=== PATIENT | female | born 1995 | race Caucasian/White ===

== ENCOUNTER → 2024-02-29 14:00 | Outpatient (CLI) | payer OTHER, SELFPAY ==
--- NOTE | 2024-02-29 14:01 | DI.US.S_ITS ---
PROCEDURE: US OB >= 14 WEEKS FETUS INDICATIONS: anatomy OUTSIDE/PRIOR DATING DATA: Last menstrual period (LMP): 10/02/2023. LMP-based estimated date of delivery (ISAI): 07/08/2024. First dating scan (date and location): Unknown Estimated date of delivery (ISAI) from first dating scan: Unknown. TECHNIQUE: Real-time scanning was performed of the fetus, with image documentation and biometric measurements. COMPARISON: None. FINDINGS: General: A single living intrauterine gestation is present. Presentation: Vertex. Placenta: Placental position is posterior , without previa. 16.2 Amniotic fluid index: cm, normal range is 5-24 cm. Single deepest vertical pocket is 6 cm. heart rate: 168 beats per minute. Maternal cervical canal: 5.6 cm long. Normal lower limit is 2.5 cm. biometrics: Biparietal diameter: 5.1 cm 21 weeks 4 days Head circumference: 19.6 cm 21 weeks 6 days Abdominal circumference: 17.8 cm 22 weeks 5 days Femur length: 3.5 cm 21 weeks 0 days Clinically estimated gestational age: 21 weeks 3 days Composite gestational age from present scan: 21 weeks 6 days Estimated weight and percentile: 459 g 69th percentile Anatomic survey: Neuro: Ventricles are non-dilated at less than 10 mm. Cisterna magna is normal at 3-11 mm. Cerebellum is normal in size and morphology. Nuchal skin fold: Normal at less than 6 mm between 14-21 weeks gestational age. Face: Nose and lips, facial profile are normal. Spine: No evidence for spina bifida. Heart: 4-chambered heart is present, with normal ventricular outflow tracts. Diaphragm: Diaphragm is intact. Stomach: Left-sided stomach is present. Kidneys: No hydronephrosis. Normal is less than 5 mm in 2nd trimester, less than 7 mm in 3rd trimester. Cord: 3-vessel cord has orthotopic insertion. Bladder: Normal in size. Extremities: All 4 extremities identified. IMPRESSION: Single live intrauterine with ultrasound gestational age of 21 weeks 6 days. Anatomy is within normal limits. We strive to produce accurate, complete, and clear reports of imaging services. To assist us in improving patient care, this report was composed using standard report templates and voice recognition software. Therefore, it may contain abnormal punctuation, insertions and/or omissions. Occasional wrong-word or sound-alike substitutions may occur. Though we review the report and make efforts to correct it, we do recommend that the report be read carefully in proper context to recognize any text inaccuracies. Dictated by: Yesenia Mejia M.D. on 02/29/2024 at 17:06 Approved by: Yesenia Mejia M.D. on 02/29/2024 at 17:10
== END ==
PROVIDERS: Referring Provider Obstetrics & Gynecology; Visit Provider Obstetrics & Gynecology
DX: Z34.82 Encounter for supervision of other normal pregnancy, second trimester (principal); Z3A.21 21 weeks gestation of pregnancy
CPT/HCPCS: 76811

== ENCOUNTER → 2024-03-01 15:18 | Outpatient (CLI) | payer OTHER, SELFPAY ==
[2024-03-01 16:36] LABS: Hemoglobin A1C% w Est Avg Glu 4.9 % (4.0-6.0)
[2024-03-05 21:36] LABS: AFP Value 64.3 ng/mL (.); Gest Age on Col Date 21.6 weeks (.); Gestational Age Ultrasound (.); Insulin Dep Diabetes No (.); OSBR Risk 1IN 8371 (.); Results Report (.); Test Results *Screen Negative* (.)
== END ==
PROVIDERS: Referring Provider Obstetrics & Gynecology; Visit Provider Obstetrics & Gynecology
DX: O99.210 Obesity complicating pregnancy, unspecified trimester (principal); Z3A.21 21 weeks gestation of pregnancy
CPT/HCPCS: 36415; 82105; 83036; 86850; 86900; 86901

== ENCOUNTER → 2024-04-05 08:56 | Outpatient (CLI) | payer OTHER, SELFPAY ==
[2024-04-05 10:55] LABS: Hematocrit 34.2 % (36-46); Hemoglobin 11.6 g/dL (12.0-16.0)
[2024-04-05 11:22] LABS: GTT (PREG) 1 Hour PP 50gm Dose 147 mg/dL (76-139)
== END ==
PROVIDERS: Referring Provider Obstetrics & Gynecology; Visit Provider Obstetrics & Gynecology
DX: Z34.82 Encounter for supervision of other normal pregnancy, second trimester (principal); Z3A.25 25 weeks gestation of pregnancy
CPT/HCPCS: 36415; 82950; 85014; 85018; 87086

== ENCOUNTER → 2024-04-10 07:56 | Outpatient (CLI) | payer OTHER, SELFPAY ==
[2024-04-10 09:34] LABS: Glucose Fasting Gestational 83 mg/dL (76-95)
[2024-04-10 10:17] LABS: Glucose 1 Hour Gest 150 mg/dL (76-180)
[2024-04-10 11:35] LABS: Glucose Tol Interp,Gestational INTERPRETATION
[2024-04-10 11:56] LABS: Glucose 2 Hour Gest 151 mg/dL (76-155)
[2024-04-10 12:51] LABS: Glucose 3 Hour Gest 117 mg/dL (76-140)
== END ==
PROVIDERS: Referring Provider Obstetrics & Gynecology; Visit Provider Obstetrics & Gynecology
DX: Z34.90 Encounter for supervision of normal pregnancy, unspecified, unspecified trimester (principal); R73.09 Other abnormal glucose
CPT/HCPCS: 36415; 82951; 82952

== ENCOUNTER → 2024-06-12 09:59 | Outpatient (CLI) | payer OTHER, SELFPAY ==
[2024-06-13 13:43] LABS: Strep Grp B PCR NEG for Grp B Strep
== END ==
PROVIDERS: Visit Provider Obstetrics & Gynecology
DX: Z34.83 Encounter for supervision of other normal pregnancy, third trimester (principal); Z3A.36 36 weeks gestation of pregnancy
CPT/HCPCS: 87653

== ENCOUNTER 2024-06-12 10:01 | Outpatient (CLI) | payer OTHER, SELFPAY | END 2024-06-12 10:52 | disposition home or self-care (01) | LOC: LABOR 10:26 → OB 06-17 08:44 | PROVIDERS: PCP Nurse Practitioner Family; Referring Provider Obstetrics & Gynecology; Visit Provider Obstetrics & Gynecology | DX: O43.893 Other placental disorders, third trimester (principal); Z3A.36 36 weeks gestation of pregnancy | CPT/HCPCS: 59025; 87653; G0378; G0379 ==

== ENCOUNTER 2024-06-19 13:27 | Outpatient (CLI) | payer OTHER, SELFPAY | END 2024-06-19 14:00 | disposition home or self-care (01) | LOC: LABOR 13:39 → OB 06-20 11:39 | PROVIDERS: PCP Nurse Practitioner Family; Referring Provider Obstetrics & Gynecology; Visit Provider Obstetrics & Gynecology | DX: Z34.83 Encounter for supervision of other normal pregnancy, third trimester (principal); Z3A.37 37 weeks gestation of pregnancy | CPT/HCPCS: 59025; 84112; G0378; G0379 ==

== ENCOUNTER 2024-06-26 14:02 | Outpatient (CLI) | payer OTHER, SELFPAY | END 2024-06-26 15:18 | disposition home or self-care (01) | LOC: OB 07-02 08:30 | PROVIDERS: PCP Nurse Practitioner Family; Referring Provider Obstetrics & Gynecology; Visit Provider Obstetrics & Gynecology | DX: O47.1 False labor at or after 37 completed weeks of gestation (principal); Z3A.38 38 weeks gestation of pregnancy | CPT/HCPCS: 59025; G0378; G0379 ==

== ENCOUNTER 2024-07-04 12:41 | Outpatient (CLI) | payer OTHER, SELFPAY | END 2024-07-04 13:20 | disposition home or self-care (01) | LOC: LABOR 13:55 → OB 07-08 06:18 | PROVIDERS: PCP Nurse Practitioner Family; Referring Provider Obstetrics & Gynecology; Visit Provider Obstetrics & Gynecology | DX: Z34.83 Encounter for supervision of other normal pregnancy, third trimester (principal); Z3A.39 39 weeks gestation of pregnancy | CPT/HCPCS: 59025; G0378; G0379 ==

== ENCOUNTER 2024-07-07 18:21 | Inpatient (IN) | payer OTHER, SELFPAY ==
[2024-07-07 19:05] LABS: Add Manual Diff / Slide Review NO; Basophils Absolute Auto 0 /uL (0-100); Basophils Percent Auto 0.5 % (0-2); Eosinophils Absolute Auto 200 /uL (0-450); Eosinophils Percent Auto 1.5 % (2-4); Hematocrit 35.9 % (36-46); Hemoglobin 11.9 g/dL (12.0-16.0); Lymphocytes Absolute Auto 2100 /uL (1100-4500); Mean Corpuscular HGB Conc 33.2 % (30-36); Mean Corpuscular Hemoglobin 28.2 PG (26-34); Mean Corpuscular Volume 84.7 fL (80-100); Monocytes Absolute Auto 700 /uL (0-900); Monocytes Percent Auto 6.5 % (3-14); Neutrophils Absolute Auto 7200 /uL (1500-7000); Neutrophils Percent Auto 70.5 % (50-75); Platelet Count 247 X10^3/uL (150-400); Red Blood Cell Count 4.23 X10^6/uL (4.0-5.2); Red Cell Distribution Width 15.2 % (11.6-14.8); White Blood Cell Count 10.2 X10^3/uL (4.5-11.0)
[2024-07-07] MEDS: miSOPROStoL 25 MCG TABLET 50 MCG PO (19:48)
[2024-07-07 20:33] VITALS: BP 110/62
[2024-07-08] MEDS: miSOPROStoL 25 MCG TABLET 50 MCG PO (00:09)
[2024-07-08] MEDS: ONDANSETRON 4 MG/2 ML INJ IV ×2 (02:53→17:04)
[2024-07-08] MEDS: LACTATED RINGERS 1,000 ML 100 ML IV ×3 (03:12→12:55)
--- NOTE | 2024-07-08 04:24 | P.PCN_ITS ---
[facility]ional Block Pre-procedure Procedure: Continuous Lumbar Epidural for L&D Attending OB provider: Lakia Gray PMH/ROS narrative: ROS negative with the exception of some GERD with . BMI 41 PSH/Anesthesia history narrative: Previous epidural only worked on one side Exam narrative: Mall 2, good airway. ASA Class: III Labs: Hct 35.9 % (36-46) L 07/07/24 18:55 Plt Count 247 X10^3/uL (150-400) 07/07/24 18:55 Medications: Current Medications Generic Name Dose Route Start Last Admin Trade Name Freq PRN Reason Stop Dose Admin Calcium Carbonate 1,000 mg 07/07/24 18:30 Calcium Carbonate 500 Mg Tab PO Q2HR PRN Dyspepsia Carboprost Tromethamine 250 mcg 07/07/24 18:30 Carboprost 250 Mcg/Ml Ampul IM Q90M PRN Bleeding Fentanyl 50 mcg 07/07/24 18:30 Fentanyl 100 Mcg/2 Ml Inj IV Q1H PRN Pain, Moderate (4-6) Lactated Ringer's 1,000 mls @ 100 mls/hr 07/07/24 18:30 Lactated Ringers IV 07/08/24 04:29 CONT CHET Tranexamic Acid 1,000 mg/ 100 mls @ 600 mls/hr 07/07/24 18:30 Sodium Chloride IV NOW PRN Bleeding Oxytocin/Lactated Ringer's 30 unit in 500 mls @ 2 mls/hr 07/07/24 18:30 Oxytocin Premix IV TITRATE CHET Protocol 2 MILLIUNIT/MIN Oxytocin/Lactated Ringer's 30 unit in 500 mls @ 200 mls/hr 07/07/24 18:30 Oxytocin Premix IV CONT PRN Bleeding Protocol Lidocaine HCl 20 ml 07/07/24 18:30 Lidocaine 1% 20 Ml INJ INTRA-OP PRN Post Delivery Methylergonovine Maleate 0.2 mg 07/07/24 18:30 Methylergonovine 0.2 Mg Tablet PO Q6HR PRN Heavy Bleeding Methylergonovine Maleate 0.2 mg 07/07/24 18:30 Methylergonovine 0.2 Mg/Ml Vial IM NOW PRN Bleeding Mineral Oil 30 ml 07/07/24 18:30 Mineral Oil 30 Ml Udc TOP PRN PRN Version Misoprostol 50 mcg 07/07/24 18:30 07/08/24 00:09 Misoprostol 25 Mcg Tablet PO 50 mcg Q4H PRN Administration cervical ripening Misoprostol 400 mcg 07/07/24 18:30 Misoprostol 200 Mcg Tablet SL NOW PRN Bleeding Misoprostol 800 mcg 07/07/24 18:30 Misoprostol 200 Mcg Tablet IA NOW PRN Bleeding Naloxone HCl 0.2 mg 07/07/24 18:30 Naloxone 0.4 Mg/Ml Vial IV Q2MIN PRN Opiate Reversal Ondansetron HCl 4 mg 07/07/24 18:30 07/08/24 02:53 Ondansetron 4 Mg/2 Ml Inj IV 4 mg Q4HR PRN Administration Nausea And Vomiting Oxytocin 10 unit 07/07/24 18:30 Oxytocin 10 Unit/Ml Vial IM NOW PRN Bleeding Zolpidem Tartrate 5 mg 07/07/24 20:51 Zolpidem 5 Mg Tablet PO BEDTIME PRN Sleep Allergies: Allergies Allergy/AdvReac Type Severity Reaction Status Date / Time Sulfa (Sulfonamide Allergy Intermediate Hives Verified 07/07/24 20:32 Antibiotics) Procedure Insertion date: 07/08/24 Insertion time: 03:42 Prep/Local: 1% lidocaine (chlorhexidine skin prep, dry x 3 min) Interspace: L4-5 Patient position: sitting Needle: 17 gauge Tuohy Loss of resistance with: saline PARESH at (cm): 7 Catheter placed at SKIN (cm): 14 Catheter in SPACE (cm): 7 Sensory level: T10 Insertion: No CSF, No Blood, No Paresthesia with insertion, No Paresthesia with injection and No Test dose reaction Initial Medications TEST DOSE time: 04:05 BOLUS DOSE time: 04:17 BOLUS DOSE (mL): 5 BOLUS DOSE med: other (pump solution) Infusion INFUSION: 0.125% bupivacaine and with fentanyl 2 mcg/mL Initial rate (mL/hr): 12 Post-procedure Anesthesia date START: 07/08/24 Anesthesia time START: 03:42 Anesthesia date END: 07/08/24 Anesthesia time END: 13:54 Post-procedure Anesthesia Assessment: Yes CV function: HR/BP stable, Yes Resp function: RR/sat/airway adequate, Yes Post-op hydration adequate, Yes Pain control adequate, Yes Nausea & vomiting absent, Yes Temperature > 36 C, Yes Men vasiliy status appropriate and Yes Anesthesia complications
--- NOTE | 2024-07-08 05:51 | PM.OBHP.IH.1 ---
OB HPI Date/Time Date of admission: 07/07/24 Date Patient Seen: 07/08/24 Time Patient Seen: 05:51 History of Present Condition Chief complaint: induction ISAI Calculator Estimated Delivery Date Method Current WG Current Estimate 07/08/24 LMP (Certain) 40w 0d Other Estimates 07/08/24 Manual 40w 0d Estimated Gestational Age (weeks): 40 : 2 Para: 1 care: good care, initiated at week # (10), number of visits (11) and pounds weight gain (29) Dating criteria OB: LMP confirmed by 1st trimester US Ultrasounds: normal 1st trimester US and normal mid trimester US Obstetrical complications: other (abnormal 1 hr GTT, normal 3 hr GTT) Medical complications OB: none Indications Indication for induction OB: other (aged placenta) Preadmission Labs Last OB Lab Results: Blood Type O Positive 07/07/24 18:55 Antibody Screen Negative 07/07/24 18:55 Hct 35.9 % (36-46) L 07/07/24 18:55 Hgb 11.9 g/dL (12.0-16.0) L 07/07/24 18:55 Glucose 1 Hr 50 gm 147 mg/dL (76-139) H 04/05/24 10:17 Hemoglobin A1c 4.9 % (4.0-6.0) 03/01/24 15:22 Group B Strep (PCR) Neg for grp b strep 06/12/24 09:59 -: Chlamydia screen: negative, Gonorrhea screen: negative and Urine: negative -: PAP smear: Normal Genetic Screens: Cell-free DNA: Normal (normal male) and Alpha-fetoprotein: Normal External Labs -: Urine: negative Prior (ies) Past Pregnancies Del. Date GA/Weeks Labor Lgth Wt Sex Route Outcome Anesthesia Place Delv Breastfeed Preg Comp Name 11/29/19 39.6 8 lb Female vaginal live - full term epidural [facility] 8-9 months (mostly pumping) other [place] Delivery Date: 11/29/19 Last Updated by: Johnna Gonzalez RN odd labor pattern, ctx only on right side of uterus, needed pitocin. Epidural only worked on R side. Hx # Term Pregnancies: 1 Hx # Pregnancies: 0 Number of Living Children: 1 Multiple births: 0 Spontaneous abortions: 0 Ectopic pregnancies: 0 Elective abortions: 0 Evaluation Evaluation Baseline heart rate: 140 Variability: Moderate (11-25) monitor accelerations: Present Monitor Decelerations: Absent Contraction Frequency (minutes): 2 Uterine Contraction Intensity: Strong/Firm Status: Category l Dilation (cm): 7 Effacement (%): 80 station: -1 Position of cervix: mid Consistency: soft PFSH Medical History (Updated 06/02/24 @ 22:25 by Lakia Gray MD) Chicken pox (~2004) Painful menstrual periods (~2010) Migraine with aura (~2020) depression Benign breast lumps Surgical History (Updated 02/28/24 @ 09:39 by Johnna Gonzalez RN) [place] teeth extracted Family History (Updated 05/06/24 @ 19:54 by Gabby Rai) Father Diabetes mellitus Hypertension Grandmother Diabetes mellitus Hyperlipidemia Breast cancer Hypertension Social History marital status: number of children: 1 household members: spouse and children lives independently: Yes caregiver/support person: Yes housing: house pets and animals: Yes (dogs) education level: high school occupational status: employed (active duty, [employer]) current occupational exposures/hazards: No special vera needs: No travel history: recent (Just moved back from [facility]) seatbelt use: always water heater temp set < 120 deg: Yes working smoke detector in home: Yes fire extinguisher in home: Yes carbon monox detector in home: Yes firearms in home: Yes firearms unloaded and locked: Yes do you feel safe at home: Yes Smoking Status: Never smoker second hand exposure: Yes ( vapes, but not around pt) alcohol intake: former (extremely rarely when not ) during the past year weight has: remained stable well-balanced diet: about half the time daily servings fruits/ve-4 caffeine: Yes (AM iced coffee) Type(s) of exercise: walking Meds Home Medications and Allergies Home Medications Medication Instructions Recorded Confirmed Type vit no.95-ferrous 1 tab PO DAILY 02/28/24 07/07/24 History fumarate 28 mg-folic acid 800 mcg tablet ( Multivitamins) breast pump #1 ea 06/20/24 06/26/24 Rx Allergies Allergy/AdvReac Type Severity Reaction Status Date / Time Sulfa (Sulfonamide Allergy Intermediate Hives Verified 07/07/24 20:32 Antibiotics) OB Exam Narrative Exam Narrative: Gen: NAD Lungs: CTA bilat CV: RRR FH: 40 cm EFW: 8# Ext: trace edema Objective Labs 07/07/24 18:55 Labs: Laboratory Results - last 24 hr 07/07/24 18:55 WBC 10.2 RBC 4.23 Hgb 11.9 L Hct 35.9 L MCV 84.7 MCH 28.2 MCHC 33.2 RDW 15.2 H Plt Count 247 Neut % (Auto) 70.5 Lymph % (Auto) 21.0 L [place] % (Auto) 6.5 Eos % (Auto) 1.5 L Baso % (Auto) 0.5 Neut # (Auto) 7200 H Lymph # (Auto) 2100 [place] # (Auto) 700 Eos # (Auto) 200 Baso # (Auto) 0 Blood Type O Positive Antibody Screen Negative Assessment and Plan Assessment and Plan Assessment and Plan narrative: Assessment: 29 year old at 40 weeks gestation s/p 2 doses of Misoprostol Advanced placental age Active labor GBS neg Plan: Expectant management to Time-Based Coding :: [TOTAL MINUTES] spent with patient and on the chart (including review of chart, obtaining history, exam, reviewing outside data, placing orders, documenting exam and treatment plan, and counseling patient) on [DATE].
--- NOTE | 2024-07-08 09:12 | PM.OBPNLAB ---
Date/Time Date Patient Seen: 07/08/24 Time Patient Seen: 09:13 Pain Control Pain control: epidural Pelvic Exam Dilation (cm): 8 Effacement (%): 80 station: +1 Amniotic membrane status: Ruptured Contractions Contractions on admission: none Monitor mode: External Contraction frequency (min): 2 Contraction duration (min): 1 Contraction pattern: Regular Contraction intensity: Strong/Firm Status status: Category ll Heart Rate Baseline: 135 Monitor Accelerations: Present Monitor Decelerations: Late (occ) and Variable Monitor Variability: Moderate Assessment and Plan Assessment: active labor Comments: IUPC placed to assess strength of contractions
[2024-07-08] MEDS: FENT 2MCG/ML BUPIV 0.125% EPI 200 MCG/100 ML PLAST..BAG 12 MCG EPIDURAL (10:12)
[2024-07-08] MEDS: OXYTOCIN PREMIX 30 UNIT/500 ML PLAST..BAG IV (11:12)
--- NOTE | 2024-07-08 11:49 | PM.OBPNLAB ---
Date/Time Date Patient Seen: 07/08/24 Time Patient Seen: 11:30 Pain Control Pain control: epidural Pelvic Exam Dilation (cm): 9 Effacement (%): 80 station: +1 Amniotic membrane status: Ruptured Contractions Contractions on admission: none Monitor mode: External Pitocin rate (mU/min): 2 Contraction frequency (min): 4 Contraction duration (min): 1 Contraction pattern: Regular (coupling) Contraction intensity: Strong/Firm Intrauterine tone measurement: 220 Status status: Category ll Heart Rate Baseline: 135 Monitor Accelerations: Present Monitor Decelerations: Early and Variable Monitor Variability: Moderate Assessment and Plan Assessment: active labor Comments: Position changes to effect head movement Recheck in 1 hour
--- NOTE | 2024-07-08 14:24 | PM.OBPRVD ---
Events: Labor Induction and Other (Aged placenta) Labor & Delivery Delivery date: 07/08/24 Delivery Time: 13:54 Intrapartal Events: Prolonged Active Phase Cervical ripening method: per misoprostal protocol Induction method: per pitocin protocol Delivery monitor: external FHT, external uterine and internal uterine Route of delivery: Episiotomy description: None L&D Laceration Description: Periurethral - 1st Degree, Perineal - 1st Degree and Vaginal - 1st Degree Delivery repair: vicryl and chromic Estimated blood loss (mL): 200 Anesthesia Type: Epidural and Local Complications: None Narrative: Patient complete and pushed x 59 min. At 1354, a live male infant delivered spontaneously over an intact perineum in the OA presentation then restituted to JOE. There was a tight nuchal cord x1 which was cut on the perineum. The remainder of the body delivered with gentle traction and Calvin. There was a large gush of moderate meconium-stained amniotic fluid. The infant was initially placed on mom's abdomen but then was taken to the warmer due to poor tone. A piece of cord for cord pH was obtained. Cord bloods were obtained. Pitocin was given in the IV fluids. The placenta delivered intact with a three-vessel cord at 2:00 p.m.. The fundus was massaged firm. There was a left periurethral laceration and a first-degree vaginal/perineal laceration. These were repaired in the usual fashion. 10 cc of 1% lidocaine was used due to patient discomfort. Hemostasis was achieved. . Apgars 1 at 1 minute, 6 at 5 minutes, 7 at 9 minutes. Epidural analgesia. Mom and infant stable to recovery. [place] Baby 1: Infant gender: Male Presentation: vertex Position: Left Occiput Anterior Placenta delivery description: Spontaneous Cord Vessel Description: 3 Vessels, Nuchal Cord, Tight and Clamped/Cut score (1 min): 1 score (5 min): 6 score (10 min): 7 weight: 9 lb Plan for aftercare: Routine care
[2024-07-08] MEDS: WITCH HAZEL/GLYCERIN PADS 1 EACH TOP (16:35)
[2024-07-08] MEDS: DERMOPLAST SPRAY 20% 60 ML 1 SPRAY TOP (16:36)
[2024-07-08] MEDS: IBUPROFEN 600 MG TABLET PO (17:54)
[2024-07-09] MEDS: IBUPROFEN 600 MG TABLET PO ×2 (00:12→08:00)
[2024-07-09 05:36] LABS: Hematocrit 36.5 % (36-46); Hemoglobin 11.8 g/dL (12.0-16.0)
[2024-07-09] MEDS: LANOLIN OINT 7 GM 1 APPLIC TOP (08:00)
[2024-07-09] MEDS: ACETAMINOPHEN 325 MG TABLET 650 MG PO (08:01)
--- NOTE | 2024-07-09 11:02 | PM.OBDS.1 ---
Discharge Providers Provider Date of admission: 07/07/24 18:21 Discharge Date: 07/09/24 Primary care physician: BILLY Phillips Consults: 07/07/24 18:30 Consult to Anesthesiology Urgent Comment: Consulting Provider: Anesthesiologist Reason for consultation: Epidural Has provider been notified: No 07/09/24 14:25 Consult to [employer] Operator Routine Comment: Discharge provider: Peggy Pearce DO Summary Hospital Course Date Patient Seen: 07/09/24 Time Patient Seen: 11:02 Diagnoses: Term gestation at 40+0wks Obesity in Hospital Course: 29yo [id number] admitted at 40+0wks for induction of labor due to aged placenta. Her delivery was uncomplicated, and productive of a viable male infant. Her course was unremarkable. On day #1, she was ambulating, tolerating regular diet, voiding spontaneously with minimal lochia. Her pain was well controlled with oral medications, thus she was discharged to home on day #1. Peripartum Data Infant Delivery Method: Natural Vaginal Laceration Description: Perineal - 1st Degree Procedures: External monitoring Induction of labor Spontaneous vaginal delivery Repair of obstetrical laceration complications: none [place] 1: Gender: Male Disposition of : home Discharge Diagnosis (1) Vaginal delivery: Status: Acute (2) Placental abnormality in third trimester: Status: Acute (3) Obesity affecting : Status: Acute (4) 40 weeks gestation of : Status: Acute Status at Discharge Cognitive/behavioral status at discharge: oriented Functional status at discharge: independent ambulation Overall status at discharge: patient is progressing back to baseline Time Spent with Patient Time attestation: Total time spent providing and/or coordinating discharge services: Time spent: Less than 30 minutes Objective Labs 07/09/24 05:21 Labs: Laboratory Results - last 24 hr 07/09/24 05:21 Hgb 11.8 L Hct 36.5 Exam Vital Signs (past 8 hours): vitals reviewed in OBIX; 1 mild range blood pressure noted in the period, otherwise vitals within normal parameters Const General: cooperative, healthy appearing, comfortable and No acute distress Resp Effort & Inspection: normal respiratory effort GI Inspection: normal to inspection Other: fundus firm and nontender at U-2 Skin General: no rashes or lesions noted Neuro General: patient alert and patient awake Extrem General: normal to inspection, no pedal edema and no calf tenderness Psych Mood: congruent mood Affect: normal affect Discharge Plan Discharge Plan Patient Disposition: Home Provider Discharge Comment: Take ibuprofen 600mg every 6hrs and acetaminophen 650mg every 6hrs as needed for cramping and pain. Avoid placing anything in the vagina for 6 weeks. Discharge orders & Medications Prescriptions: Continued PNV cmb#95-ferrous fumarate-FA [ Multivitamins] 28 mg iron- 800 mcg tablet 1 tab PO DAILY No Action (DME) breast pump Device See Rx Instructions .ROUTE .MEDSUPPLY Qty: 1 0RF Rx Instructions: As directed Follow up/Referrals: Lakia Gray MD [Physician] - (6 week Appt w/ Dr. Gray: @ 3pm. Please arrive at 2:45pm!) Diet/Activity/Treatments Diet: Diet as Tolerated Activity: As tolerated. Skin/Wound/Dressing Care Report to your healthcare provider any signs of infection, such as:: chills, fever, increased pain and unusual drainage Visit Report/Discharge Packet Instructions: DI for Hemorrhage, DI for Labor and Delivery, Vaginal , DI for Depression Stand Alone Forms: Discharge: Care, Patient Portal/API, Stroke Signs & Symptoms Discharge Data Primary Care Provider: aDwn Javier
== END 2024-07-09 12:57 | disposition home or self-care (01) | DRG 807 ==
PROVIDERS: Admitting Provider Obstetrics & Gynecology; PCP Nurse Practitioner Family; Referring Provider Obstetrics & Gynecology; Visit Provider Obstetrics & Gynecology
DX: O43.893 Other placental disorders, third trimester (principal); Z37.0 Single live birth; O76 Abnormality in fetal heart rate and rhythm complicating labor and delivery; O70.0 First degree perineal laceration during delivery; O63.1 Prolonged second stage (of labor); Z3A.40 40 weeks gestation of pregnancy
CPT/HCPCS: 36415; 59050; 59200; 85014; 85018; 85025; 86850; 86900; 86901; G0379; J2405; J2590